=== PATIENT | female | born 1995 | race American Indian/Alaskan Native ===

== ENCOUNTER 2022-05-28 10:49 | Emergency (ER) | payer SELFPAY ==
[2022-05-28] MEDS ORDERED: ALBUTEROL 2.5 MG/3 ML NEBU IH ONE (11:14)
[2022-05-28] MEDS ORDERED: IPRATROPIUM 0.02% NEBU 2.5 ML IH ONE (11:14)
--- NOTE | 2022-05-28 13:16 | Emergency Department Report ---
Eye Injury/Foreign Body - HPI Duration: 1 Day Eye Location: Left Tetanus Status: Up to Date Eye Symptoms: Eye Pain: Yes, Blurred Vision: No, Eye Redness: No, Grinding/Hammering Metal: No, Used Eye Protection: No, Contact Lens Use: No, Recalls Injury: No, Photophobia: No Other History: This is a 26-year-old -[place] female who presents to the emergency room with left lower eyelid swelling and pain for 1 day. Patient reports history of Crohn's disease. Patient states she frequently gets styes and had one on her left upper eyelid which she was applying [id number] ointment. Patient states when she woke up yesterday she noticed her left lower eyelid was swollen, red, and painful to touch. Denies visual changes, wearing contacts, injury, or discharge. <JINNY YOUNGISHA SALEEM - Last Filed: 05/28/22 13:12> ED Review of Systems ROS: Stated complaint: EYE INFLATION/PAIN Other details as noted in HPI Constitutional: denies: chills, fever Eyes: eye pain. denies: eye discharge ENT: denies: ear pain, throat pain Respiratory: denies: cough, shortness of breath, wheezing Cardiovascular: denies: chest pain, palpitations Skin: denies: rash, lesions Neurological: denies: headache, weakness, paresthesias Psychiatric: denies: anxiety, depression <ARNIE YOUNGA FLORENCE - Last Filed: 05/28/22 13:12> ROS: Stated complaint: EYE INFLATION/PAIN Other details as noted in HPI <EVI RICHARDSON - Last Filed: 05/29/22 16:22> ED Past Medical Hx <YOUNGARACELI FLORENCE - Last Filed: 05/28/22 13:12> <EVI RICHARDSON - Last Filed: 05/29/22 16:22> - Medications Home Medications: Home Medications Medication Instructions Recorded Confirmed Last Taken Type Erythromycin [Erythromycin Ophth 10 applic OP QID 7 Days #1 tube 05/28/22 Unknown Rx Oint] Eye Injury Exam - Exam General: Vital signs noted. No distress. Alert and acting appropriately. - Visual Acuity Left Eye Exam: Both EOMI, Neither Injection, Neither Chemosis (Left lower eyelid swelling, TTP, erythema), Neither Abnormal Pupil, Neither Eye Foreign Body, Neither Lid Foreign Body, Neither Mucous Discharge, Neither Purulent Discharge, Neither Photophobia <ARNIE YOUNGA MARCELLA - Last Filed: 05/28/22 13:12> - Exam General: Vital signs noted. No distress. Alert and acting appropriately. <EVI RICHARDSON - Last Filed: 05/29/22 16:22> ED Course Vital Signs 05/28/22 11:40 Temperature 98.5 F Pulse Rate 68 Respiratory 20 Rate Blood Pressure 94/50 [Left] O2 Sat by Pulse 100 Oximetry <ARNIE YOUNGA MARCELLA - Last Filed: 05/28/22 13:12> Vital Signs 05/28/22 05/28/22 11:40 13:22 Temperature 98.5 F Pulse Rate 68 62 Respiratory 20 20 Rate Blood Pressure 112/59 Blood Pressure 94/50 [Left] O2 Sat by Pulse 100 100 Oximetry <DEBRADAVIDMARCY - Last Filed: 05/29/22 16:22> ED Medical Decision Making - Medical Decision Making This is a 26 y.o. female that presents with left lower eyelid painful swelling. Currently using OTC stye ointment and warm compresses with no improvement of symptoms. Patient is stable and was examined by me. Vitals stable. Physical assessment susceptible of hordeolum of left lower eyelid. Start erythromycin 0.5%, apply thin layer 4 times a day for 5 days. Continue using warm compresses for swelling. Discussed plan with patient and she agreed with plan. Discharged home in stable condition. Follow up with PCP in 24-72 hours. <JINNY YOUNGNOY HENRIQUEZBENSON - Last Filed: 05/28/22 13:12> - Medical Decision Making Patient was managed independently by the mid level below , I was available for consult but i wasn't directly involved in the care of this patient <VEI RICHARDSON - Last Filed: 05/29/22 16:22> Critical care attestation.: If time is entered above; I have spent that time in minutes in the direct care of this critically ill patient, excluding procedure time. <HANNAHJINNYARACELI TIABENSON - Last Filed: 05/28/22 13:12> Critical care attestation.: If time is entered above; I have spent that time in minutes in the direct care of this critically ill patient, excluding procedure time. <EVI RICHARDSON - Last Filed: 05/29/22 16:22> ED Disposition Is pt being admited?: No Time of Disposition: 13:17 <ARACELI YOUNG - Last Filed: 05/28/22 13:12> Is pt being admited?: No Does the pt Need Aspirin: No <EVI RICHARDSON - Last Filed: 05/29/22 16:22> Clinical Impression: Pain and swelling of eyelid of left eye Hordeolum eyelid, internal Qualifiers: Laterality: left Eyelid: lower Qualified Code(s): H00.025 - Hordeolum internum left lower eyelid Disposition: 01 HOME / SELF CARE / HOMELESS Condition: Stable Instructions: Stfrancia Prescriptions: Erythromycin [Erythromycin Ophth Oint] 10 applic OP QID 7 Days #1 tube Referrals: MELISSA BEARD MD [Staff Physician] - 3-5 Days Forms: Work/School Release Form(ED)
[2022-05-28 13:29] VITALS: BP 112/59
== END 2022-05-28 14:30 | disposition home or self-care (01) ==
LOC: ED 10:49
DX: H00.025 Hordeolum internum left lower eyelid (principal)
CPT/HCPCS: 99282